=== PATIENT | female | born 1960 | race Native Hawaiian/Other Pacific Islander ===

== ENCOUNTER 2016-10-16 13:27 | Outpatient (CLI) | payer OTHER | END 2016-10-16 21:06 | disposition home or self-care (01) | LOC: MRI 13:27 → MAMMO 13:27 → MRI 14:00 | DX: M96.1 Postlaminectomy syndrome, not elsewhere classified (principal); M51.34 Other intervertebral disc degeneration, thoracic region; Z12.31 Encounter for screening mammogram for malignant neoplasm of breast | CPT/HCPCS: 36415; 82565; 84520; G0202-TC ==